=== PATIENT | female | born 1960 | race Caucasian/White ===

== ENCOUNTER 2017-01-20 02:34 | Inpatient (IN) ==
[2017-01-13 09:45] LABS: MANUAL DIFF NEEDED? NO
[2017-01-13 10:09] LABS: BASO% 0.4 % (0.0-0.8); EOS# 0.17 X1000 (0.0-0.7); EOS% 1.8 % (0.0-10.0); HEMATOCRIT 41.2 % (37.0-47.0); IMM GRAN# 0.03 X1000 (0.0-0.04); IMM GRAN% 0.3 % (0.0-0.5); LYMPH# 4.64 X1000 (1.2-3.4); LYMPH% 47.9 % (20.5-51.1); MCH 30.1 PG (27-31); MCHC 31.6 g/dL (33-37); MCV 95.4 FL (81-99); MONO# 0.85 X1000 (0.11-0.59); MONO% 8.8 % (1.7-9.3); MPV 11.3 FL (7.4-10.4); NEUT% 40.8 % (42.2-75.2); PLT 383 X1000 (130-400); RBC 4.32 XMIL (4.2-5.4)
[2017-01-13 10:23] LABS: INR 0.91; PROTIME 9.5 Seconds (9.2-11.7); PTT 23.7 Seconds (22.0-36.0)
[2017-01-13 10:39] LABS: AGAP 15; BUN 11 mg/dL (8-22); CALCIUM 9.5 mg/dL (8.8-10.2); CHLORIDE 104 mmol/L (98-107); COSMO 284; POTASSIUM 3.3 mmol/L (3.5-5.1); SODIUM 143 mmol/L (136-145); TCO2 24 mmol/L (25-35)
--- NOTE | 2017-01-13 15:10 | EKG Report ---
Test Performed on : 01/13/2017 08:12:19 AM Test Reason : JOINT CAMP Blood Pressure : / mmHG Vent. Rate : 072 BPM Atrial Rate : 072 BPM P-R Int : 174 ms QRS Dur : 088 ms QT Int : 374 ms P-R-T Axes : 051 014 051 degrees QTc Int : 409 ms Normal sinus rhythm. Normal ECG When compared with ECG of 25-MAY-2012 16:21, T wave amplitude has decreased in III T wave inversion no longer evident in aVL Confirmed by Toby Sharp DO ([id number]) on 01/16/2017 7:55:27 PM
[2017-01-14 12:27] LABS: URINE MICRO REVIEW NEEDED? NO; URINE SOURCE CLEAN CATCH
[2017-01-14 12:52] LABS: BILIRUBIN URINE NEGATIVE (NEGATIVE); BLOOD URINE NEGATIVE (NEGATIVE); COLOR YELLOW; GLUCOSE URINE 500 mg/dL (NEGATIVE); LEUKOCYTES URINE LARGE (NEGATIVE); NITRITE URINE NEGATIVE (NEGATIVE); PROTEIN URINE TRACE mg/dL (NEGATIVE); TURBIDITY URINE CLEAR (CLEAR); UROBILINOGEN URINE NORMAL (NORMAL)
[2017-01-14 12:53] LABS: UR EPITHELIAL CELLS <10 /HPF (<10); URINE BACTERIA NEGATIVE /HPF; URINE RBC <10 /HPF (<10)
[2017-01-20] MEDS ORDERED: PEPCID ONE (05:32)
[2017-01-20] MEDS ORDERED: LR 1,000 ML ONE (05:32)
[2017-01-20] MEDS ORDERED: COLACE ONE (05:32)
[2017-01-20] MEDS ORDERED: CELEBREX ONE (05:32)
[2017-01-20] MEDS ORDERED: LYRICA ONE (05:32)
[2017-01-20] MEDS ORDERED: REGLAN ONE (05:32)
[2017-01-20] MEDS ORDERED: KEFZOL 2 GM/D5W 2 GM/50 ML IVPB ONE (05:33)
[2017-01-20] MEDS ORDERED: FENTANYL ONE (06:25)
[2017-01-20] MEDS ORDERED: QUELICIN (DOSE) ONE (06:25)
[2017-01-20] MEDS ORDERED: DIPRIVAN 1% ONE ×3 (06:25→08:23)
[2017-01-20] MEDS ORDERED: XYLOCAINE-MPF 2% ONE (06:25)
[2017-01-20] MEDS ORDERED: VERSED ONE ×2 (06:25→07:15)
[2017-01-20] MEDS ORDERED: TORADOL ONE (06:36)
[2017-01-20] MEDS ORDERED: DURAMORPH ONE (06:36)
[2017-01-20] MEDS ORDERED: MARCAINE 0.25% PF ONE (06:36)
[2017-01-20] MEDS ORDERED: VANCOMYCIN ONE (06:36)
[2017-01-20] MEDS ORDERED: EXPAREL 1.3% ONE (06:37)
[2017-01-20] MEDS ORDERED: SODIUM CHLORIDE 0.9% ONE (06:37)
[2017-01-20] MEDS ORDERED: NEOSPORIN G.U. IRRIGANT ONE (06:37)
[2017-01-20] MEDS ORDERED: CYKLOKAPRON 1,000 MG/NS 1,000 MG/100 ML IVPB ONE ×2 (06:37)
[2017-01-20] MEDS ORDERED: NEO-SYNEPHRINE ONE (07:12)
[2017-01-20] MEDS ORDERED: EPHEDRINE ONE (07:12)
[2017-01-20] MEDS ORDERED: ZOFRAN ONE (07:39)
[2017-01-20] MEDS ORDERED: DECADRON ONE (07:39)
[2017-01-20] MEDS ORDERED: OFIRMEV 1000 MG/ISOTONIC SOLN 1,000 MG/100 ML BOTTLE ONE (07:39)
[2017-01-20 07:57] LABS: URINE MICRO REVIEW NEEDED? NO; URINE SOURCE CATH
[2017-01-20 08:03] LABS: BILIRUBIN URINE NEGATIVE (NEGATIVE); BLOOD URINE NEGATIVE (NEGATIVE); COLOR YELLOW; GLUCOSE URINE >1000 mg/dL (NEGATIVE); LEUKOCYTES URINE NEGATIVE (NEGATIVE); NITRITE URINE NEGATIVE (NEGATIVE); PROTEIN URINE TRACE mg/dL (NEGATIVE); SP GRAVITY URINE 1.026; TURBIDITY URINE CLEAR (CLEAR); UROBILINOGEN URINE NORMAL (NORMAL)
[2017-01-20 08:05] LABS: UR EPITHELIAL CELLS <10 /HPF (<10); URINE BACTERIA NEGATIVE /HPF; URINE RBC <10 /HPF (<10); URINE WBC <10 /HPF (<10)
[2017-01-20] MEDS ORDERED: NS 1,000 ML ONE (09:35)
--- NOTE | 2017-01-20 09:59 | OPERATIVE NOTE ---
PROCEDURE DATE: 01/20/2017 PREOPERATIVE DIAGNOSIS: Degenerative osteoarthritis of the right knee. POSTOPERATIVE DIAGNOSIS: Degenerative osteoarthritis of the right knee. PROCEDURES PERFORMED: Right total knee arthroplasty with DePuy Attune size 6 narrow posterior stabilized femur, size 6 tibial tray, a 10 mm rotating platform tibial insert, and a 35 mm medialized anatomic patella. SURGEON: Jaziel Calle MD. IMMIGRATION ASSOCIATE: MEGHAN Ya. SECOND ICEBOX WORKER: Yandel Saavedra RN. ANESTHESIA: Spinal. IV FLUIDS: 2000 mL lactated Ringer's. ESTIMATED BLOOD LOSS: 30 mL. TOURNIQUET TIME: 100 minutes at 350 mmHg. COMPLICATIONS: None. INDICATION: The patient is a pleasant, 56-year-old female with a chronic history of worsening pain and discomfort of the right knee. Continued pain and discomfort despite appropriate nonoperative treatment. X-rays revealed degenerative osteoarthritis. A recommendation to proceed with right total knee arthroplasty was offered. Risks and benefits of surgery were explained, including the risks of anesthesia, , bleeding, infection, failure to relieve pain, postoperative stiffness, nerve injury, blood clots, and other imponderables. All questions were answered. Patient and family wished to proceed with surgery. DETAILS OF OPERATION: The patient was taken to the operating room and underwent spinal anesthesia. After adequate anesthesia was obtained, the patient's right lower extremity was subsequently prepped and draped in the usual sterile fashion. An Esmarch was used to exsanguinate the right lower extremity. The tourniquet was inflated to 350 mmHg. A standard anterior incision was made with a skin knife. Medial and lateral skin envelopes were developed. Standard medial parapatellar arthrotomy was then performed. Patella fat pad was excised. Retractors were then placed. Approximately 1 cm anterior to the PCL insertion, a starting reamer was passed. This was followed by an intramedullary guide with a distal cutting block. The distal femoral cutting block was pinned, placed in position. Distal femoral cut was then performed in a standard fashion. A sizing block was placed and measured size 6. Corresponding pins were placed. Anterior, posterior, and chamfer cuts were then made. Attention was then turned to the proximal tibia where further resection of the ACL and PCL was performed. Using the extramedullary guide, the proximal tibia cutting block was pinned in position. It had good alignment confirmed with the alignment joie. The medial and lateral meniscus were excised. A spacer block was placed and had good soft tissue balance in both flexion and extension. Attention was then turned to the proximal tibia once again and a size 6 tibial tray appeared to be the correct size. Tibial tray was pinned in position. This was followed by a central reamer and a fin punch. The box cutting guide was pinned in position over the distal femur. A box cut was performed. A trial femoral component was then placed. The trial component was placed and 2 lug holes were drilled. Trial tibial insert was placed and had good soft tissue balancing. Patella was everted and resected in a standard fashion. A 35 appeared to be the correct size. Corresponding holes were drilled. A 35 mm medialized anatomic patella was then placed and had good patellofemoral tracking. The trial components were then removed. Copious irrigation was then performed once again with antibiotic pulsatile lavage while vancomycin was mixed with cement on the back table. Sequential cementing was then performed, first with the tibial tray and excess cement was removed with a Reno, followed by the femoral component and excess cement was removed with a Reno, followed by the trial tibial insert in full extension and axial loading was maintained while cement cured. Patella cemented in the standard fashion as well. A patella clamp was placed. Exparel was placed in he deep soft tissue as well as the subcutaneous tissue while the cement was curing. After the cement had cured, peripheral cement was removed with a small osteotome. A 10 mm rotating platform tibial insert appeared to be the correct size. The trial insert was removed. Exparel was placed in the deep posterior capsule. The wound was copiously irrigated once again with antibiotic pulsatile lavage. A 10 mm rotating platform tibial insert was then placed and had good soft tissue balancing and good patellofemoral tracking. A 1/8 Hemovac drain was placed. It was not sewn in. Copious irrigation was then performed once again with antibiotic pulsatile lavage. Number 1 Vicryl was used to repair the arthrotomy, followed by 2-0 Vicryl to repair the subcutaneous tissue, and skin emily. Adaptic, sterile 4 x 4s, Webril, cryounit, Abdi wrap were applied to the left lower extremity. Patient tolerated the procedure well with no complications and was transferred to the recovery room in stable condition. cc: Jaziel Calle MD
--- NOTE | 2017-01-20 10:09 | Diag Imaging Result Doc PS360 ---
EXAM: KNEE 1-2 VIEWS-RIGHT INDICATION: post op R total knee TECHNIQUE: 2 views COMPARISON: None. FINDINGS: There has been a recent right knee arthroplasty. The arthroplasty hardware is in the expected position. There is no evidence of periprosthetic fracture. Anterior skin emily and a drainage catheter are in place. IMPRESSION: Satisfactory postoperative right knee. Electronically signed by Ananda Cisneros 01/20/2017 10:07 AM
[2017-01-20] MEDS: ENTOCORT EC PO SCH ×2 (12:49→14:12)
[2017-01-20] MEDS: INVOKANA PO SCH (12:49)
[2017-01-20] MEDS: OXY IR PO PRN ×3 (12:59→20:45)
[2017-01-20] MEDS ORDERED: ZOFRAN PO PRN (13:00)
[2017-01-20] MEDS ORDERED: AMBIEN PO PRN (13:00)
[2017-01-20] MEDS ORDERED: MILK OF MAGNESIA PO PRN (13:00)
[2017-01-20] MEDS ORDERED: ZOFRAN IV PRN (13:00)
--- NOTE | 2017-01-20 14:03 | HISTORY AND PHYSICAL ---
CHIEF COMPLAINT: Right knee pain. HISTORY OF PRESENT ILLNESS: This is a 56-year-old with a history of gradually increasing pain of the right knee. The patient has been treated conservatively without relief. She was evaluated in the office and found to need a right total knee arthroplasty. The surgical procedure as well as the risks and benefits were explained to the patient at this time and she agreed to proceed. PAST MEDICAL HISTORY: ALLERGIES: Not allergic to any medications. PAST SURGERIES: T A, hysterectomy, splenectomy, tarsal tunnel. SERIOUS ILLNESSES: Crohn's and borderline diabetes. REGULAR MEDICATIONS: Entocort 3 times a day and Invokana 300 mg 1 a day. REVIEW OF SYSTEMS: HEENT: No history of migraines, dizziness, loss of conscious, CVA. Respiratory: Nonsmoker. No history of asthma, emphysema, or shortness of breath. Heart: No history of heart abnormalities. Abdomen: Has history of Crohn's, takes medication for this. PHYSICAL EXAMINATION: GENERAL: This is a 56-year-old female, alert and oriented. Primary care physician is Dr. Andujar. HEENT: Pupils equal, round, reactive. NECK: Good range of motion without adenopathy. RESPIRATORY: Respirations equal and unlabored, clear bilaterally. HEART: Regular rate and rhythm. ABDOMEN: Soft, nontender. Bowel sounds present. EXTREMITIES: Complains of pain about the right knee. There is some swelling. States she sometimes has difficulty walking. The pain sometimes radiates down the leg. IMPRESSION: Degenerative disease right knee. PLAN: Admit at this time for right total knee arthroplasty. Dictated by Yandel Saavedra RN for Jaziel Calle MD This chart was documented by the indicated scribe, Yandel Saavedra RN and accurately reflects the services I performed and decisions made by me, Jaziel Calle MD, as attested by the provider's signature. cc: Jaziel Calle MD
[2017-01-20] MEDS: NS 1,000 ML IV SCH ×2 (14:12→20:44)
[2017-01-20] MEDS: KEFZOL 2 GM/D5W 2 GM/50 ML IVPB IV SCH ×2 (15:09→23:08)
[2017-01-20] MEDS: TYLENOL PO SCH ×2 (15:09→20:45)
[2017-01-20] MEDS: MORPHINE IV PRN ×2 (17:33→23:33)
[2017-01-20] MEDS: PERIDEX MT SCH (20:45)
[2017-01-20] MEDS: COLACE PO SCH (20:47)
[2017-01-21] MEDS: NS 1,000 ML IV SCH (02:45)
[2017-01-21] MEDS: TYLENOL PO SCH (05:35)
[2017-01-21] MEDS: OXY IR PO PRN ×2 (05:35→08:51)
[2017-01-21] MEDS ORDERED: XARELTO PO SCH (06:00)
[2017-01-21 06:22] LABS: HEMATOCRIT 33.4 % (37.0-47.0); HEMOGLOBIN 10.6 g/dL (12.0-16.0)
[2017-01-21 06:34] LABS: AGAP 12; BUN 11 mg/dL (8-22); CALCIUM 8.9 mg/dL (8.8-10.2); CHLORIDE 105 mmol/L (98-107); COSMO 281; POTASSIUM 4.2 mmol/L (3.5-5.1); SODIUM 141 mmol/L (136-145); TCO2 24 mmol/L (25-35)
--- NOTE | 2017-01-21 07:48 | PROGRESS NOTE ---
DATE: 01/21/2017 SUBJECTIVE: The patient is a pleasant, 56-year-old female, 1 day status post right total knee arthroplasty. The patient is currently resting comfortably this morning, and has no complaints. PHYSICAL EXAMINATION: The patient's right lower extremity, the dressing is intact, calf is soft. She has active dorsiflexion and plantar flexion. LABORATORY DATA: Her hemoglobin is 10.6, hematocrit is 33.4. IMPRESSION: Postoperative day #1, status post right total knee arthroplasty. PLAN: At this point, the patient will change her dressing, Hep-Lock her IV, and discontinue her drain and Yu. Will discharge home after physical therapy. The patient will proceed with outpatient physical therapy beginning tomorrow. cc: Jaziel Calle MD
[2017-01-21] MEDS: INVOKANA PO SCH (08:51)
[2017-01-21] MEDS: COLACE PO SCH (08:52)
[2017-01-21] MEDS: PERIDEX MT SCH (08:52)
[2017-01-21] MEDS ORDERED: ENTOCORT EC PO SCH (09:00)
[2017-01-21] MEDS ORDERED: PEPCID PO SCH (09:00)
[2017-01-21 10:45] VITALS: BP 103/64
== END 2017-01-21 10:52 | disposition home or self-care (01) ==
LOC: SURHOLD 02:34 → 4N 09:41
PROVIDERS: ADMIT Orthopaedic Surgery Adult Reconstructive Orthopaedic Surgery; ATTEND Orthopaedic Surgery Adult Reconstructive Orthopaedic Surgery